=== PATIENT | male | born 1960 | race Caucasian/White ===

== ENCOUNTER 2022-03-09 06:23 | Day surgery (SDC) | payer OTHER ==
[2022-03-09] MEDS ORDERED: LACTATED RINGERS 1,000 ML IV ONE ×2 (06:52→08:01)
--- NOTE | 2022-03-09 07:06 | ANESTHESIA ---
Pre-Anesthesia VS, & Labs - Diagnosis Positive cologuard - Procedure Colonoscopy Vital Signs: Temp Pulse Resp BP Pulse Ox 36.2 C L 69 15 162/85 H 97 03/09/22 06:40 03/09/22 06:40 03/09/22 06:40 03/09/22 06:40 03/09/22 06:40 Height: 6 ft Weight (kg): 102 kg Body Mass Index: 30.4 BMI Classification: Obese - NPO >8 hours - Lab Results Lab results reviewed: Yes Home Medications and Allergies Home Medications: Ambulatory Orders Lisinopril [Zestril] 40 mg PO DAILY 03/08/22 amLODIPine [Norvasc] 5 mg PO DAILY 03/08/22 Atorvastatin Calcium [Lipitor] 20 mg PO DAILY 10/18/13 Fluticasone/Salmeterol 100/50 [Advair 100 Mcg/50 Mcg] 1 puffs INH QPM 10/18/13 Meloxicam [Mobic] 7.5 mg PO DAILY 05/26/15 Lisinopril [Zestril] 40 mg PO DAILY 03/08/22 amLODIPine [Norvasc] 5 mg PO DAILY 03/08/22 Allergies/Adverse Reactions: Allergies Allergy/AdvReac Type Severity Reaction Status Date / Time banana AdvReac Unknown Verified 03/08/22 09:22 grape AdvReac Unknown Verified 03/08/22 09:22 walnut AdvReac Unknown Verified 03/08/22 09:22 Anes History & Medical History - Anesthetic History Anesthesia Complications: reports: No previous complications Family history of Anesthesia Complications: Denies Family history of Malignant Hyperthermia: Denies - Medical History Cardiovascular: reports: Hypertension, High cholesterol Pulmonary: reports: None, Asthma (seasonal. used inhaler today) Gastrointestinal: reports: None Urinary: reports: None Musculoskeletal: reports: Osteoarthritis Endocrine/Autoimmune: reports: None Skin: reports: None Smoking Status: Current every day smoker History of Cancer?: No - Surgical History General: reports: Colonoscopy Orthopedic: reports: Spine surgery, Other Exam General: Alert, Oriented x3 Dental: WNL Mouth Openin Fingerbreadth Neck Mobility: Normal Mallampati classification: II Thyromental Distance: 4-6 cm Respiratory: Lungs clear Cardiovascular: Regular rate, Normal S1, No murmurs Mental/Cognitive Status: Alert/Oriented X3, Normal for patient Cognitive Status: Within normal limits Plan Anesthesia Type: General Consent for Procedure(s) Verified and Reviewed: Yes Code Status: Attempt Resuscitation ASA classification: 2-Mild systemic disease Is this case an emergency?: No
[2022-03-09] MEDS ORDERED: PROPOFOL 500 MG/50 ML 500 MG/50 ML VIAL ONE (07:29)
[2022-03-09] MEDS ORDERED: LIDOCAINE-MPF 2% 5 ML VIAL ONE (07:29)
[2022-03-09] MEDS ORDERED: MIDAZOLAM 2 MG/2 ML VIAL ONE (07:29)
[2022-03-09 08:33] VITALS: BP 131/67
--- NOTE | 2022-03-09 10:34 | ANESTHESIA POST OP EVALUATION ---
Anesthesia Post Eval - Post Anesthesia Eval Vitals: Last Vital Signs Temp 36.2 C L 03/09/22 08:25 Pulse 69 03/09/22 08:25 Resp 16 03/09/22 08:25 BP 131/67 H 03/09/22 08:25 Pulse Ox 97 03/09/22 08:25 CV Function Including HR & BP: Stable Pain Control: Satisfactory Nausea & Vomiting: Negative Mental Status: Baseline Respiratory Status: Airway Patent Hydration Status: Satisfactory Anesthesia Complications: None
== END 2022-03-09 06:24 | disposition home or self-care (01) ==
LOC: SDS 06:23
PROVIDERS: ATTEND Surgery
PROC: 0DBP8ZX Excision of Rectum, Via Natural or Artificial Opening Endoscopic, Diagnostic (ICD-10-PCS; principal; 2022-03-09 07:30)
DX: R19.5 Other fecal abnormalities (principal); K62.1 Rectal polyp; K57.30 Diverticulosis of large intestine without perforation or abscess without bleeding; E66.9 Obesity, unspecified; Z68.30 Body mass index [BMI] 30.0-30.9, adult; F17.200 Nicotine dependence, unspecified, uncomplicated; J44.9 Chronic obstructive pulmonary disease, unspecified; J45.998 Other asthma
CPT/HCPCS: 45380; J7120